=== PATIENT | female | born 1940 | race Caucasian/White ===

== ENCOUNTER 2019-01-25 18:13 | Emergency (ER) | payer OTHER ==
[~2019-01-25] VITALS: Ht 154.9 cm; Wt 64.4 kg
[2019-01-25 18:18] VITALS: BP_SYST 140
[2019-01-25] MEDS ORDERED: ACETAMINOPHEN 500 MG TABLET PO ONE (19:45)
[2019-01-25] MEDS ORDERED: CEPHALEXIN 500 MG CAPSULE PO ONE (22:45)
[2019-01-25] MEDS ORDERED: HYDROcodone/ACETAMIN 5-325 MG TAB (NORCO/ VICODIN) PO ONE (22:45)
[2019-01-25 22:58] VITALS: BP_SYST 132
== END 2019-01-25 22:58 | disposition home or self-care (01) ==
LOC: SED 18:13
DX: S01.511A Laceration without foreign body of lip, initial encounter (principal); Z88.2 Allergy status to sulfonamides; Z88.5 Allergy status to narcotic agent; Z88.6 Allergy status to analgesic agent; W01.118A Fall on same level from slipping, tripping and stumbling with subsequent striking against other sharp object, initial encounter; Y93.89 Activity, other specified; Y92.89 Other specified places as the place of occurrence of the external cause; Y99.8 Other external cause status
CPT/HCPCS: 99284